=== PATIENT | male | born 1980 | race Caucasian/White ===

== ENCOUNTER 2023-01-29 15:04 | Inpatient (IN) | payer OTHER ==
[~2023-01-29 15:04] MED LIST: Iopamidol 370 76% 100 ML VIAL ONE
[2023-01-29 16:12] LABS: #Eosinphils 0.2 10x3/uL (0.0-0.5); #Monocytes 0.7 10x3/uL (0.0-1.1); %Basophils 0.5 % (0.0-2.0); %Eosinophils 5.7 % (0.0-6.0); %Lymphocytes 28.1 % (18.0-47.0); %Monocytes 16.4 % (0.0-10.0); %Neutrophils 49.1 % (40.0-75.0); Hemoglobin 13.8 g/dL (13.5-17.5); Mean Corpuscular HGB CONC 34.5 g/dL (32.0-36.0); Mean Corpuscular Hemoglobin 30.9 pg (27.0-33.0); Mean Corpuscular Volume 89.5 fl (81.2-95.1); Mean Platelet Volume 9.7 fl (7.4-10.4); Platelet Count 203 10x3/uL (150-450); RBC Distribution Width 12.3 % (11.5-14.5); Red Blood Cell (RBC) Count 4.47 10x6/uL (4.32-5.72)
[2023-01-29] MEDS ORDERED: Ondansetron PF 4 MG/2 ML Vial ONE ×4 (16:17→21:39)
[2023-01-29] MEDS ORDERED: HYDROmorphone 0.5 MG/0.5 ML SYRINGE ONE ×3 (16:23→21:39)
[2023-01-29 16:28] LABS: ALT (SGPT) 42 U/L (8-55); AST (SGOT) 27 U/L (5-34); Albumin 4.1 g/dL (3.5-5.0); Alkaline Phosphatase 68 U/L (40-110); Anion Gap 15 mmol/L (10-20); BUN (Urea Nitrogen) 16 mg/dL (8.9-20.6); Bilirubin, Total 0.8 mg/dL (0.2-1.2); Calc. Creatinine Clearance 0 mL/min (70-130); Calcium 9.7 mg/dL (7.8-10.44); Carbon Dioxide 29 mmol/L (22-29); Chloride 101 mmol/L (98-107); Estimated GFR 70; Globulin 2.7 g/dL (2.4-3.5); Glucose 79 mg/dL (70-105); Magnesium 1.9 mg/dL (1.6-2.6); Potassium 4.1 mmol/L (3.5-5.1); Protein, Total 6.8 g/dL (6.0-8.3); Sodium 141 mmol/L (136-145)
[2023-01-29 18:15] LABS: Prothrombin Time 10.4 sec (9.5-12.1)
[2023-01-29] MEDS ORDERED: Pantoprazole 40 MG VIAL ONE (19:09)
[2023-01-29] MEDS ORDERED: Pantoprazole 80 MG in Sodium Chloride 0.9% 100 ML IVPB SCH ×2 (19:15→20:45)
[2023-01-29] MEDS ORDERED: HYDROcodone/Acetaminophen 5/325 mg Tablet PO PRN (20:33)
[2023-01-29] MEDS ORDERED: Acetaminophen 325 MG TAB PO PRN ×2 (20:33→20:44)
[2023-01-29] MEDS ORDERED: Dextrose 5%-Lactated Ringers 1,000 ML IV SCH (20:45)
[2023-01-29 21:18] LABS: #Eosinphils 0.2 10x3/uL (0.0-0.5); #Monocytes 0.6 10x3/uL (0.0-1.1); #Neutrophils 1.8 10x3/uL (1.5-8.4); %Basophils 0.3 % (0.0-2.0); %Eosinophils 5.2 % (0.0-6.0); %Lymphocytes 32.5 % (18.0-47.0); %Monocytes 14.7 % (0.0-10.0); %Neutrophils 46.8 % (40.0-75.0); Hematocrit 38.8 % (38.8-50.0); Hemoglobin 13.5 g/dL (13.5-17.5); Mean Corpuscular HGB CONC 34.8 g/dL (32.0-36.0); Mean Corpuscular Hemoglobin 31.2 pg (27.0-33.0); Mean Corpuscular Volume 89.6 fl (81.2-95.1); Mean Platelet Volume 9.7 fl (7.4-10.4); Platelet Count 207 10x3/uL (150-450); RBC Distribution Width 12.3 % (11.5-14.5); Red Blood Cell (RBC) Count 4.33 10x6/uL (4.32-5.72); White Blood Cell (WBC) Count 3.8 10x3/uL (3.5-10.5)
[2023-01-29] MEDS: HYDROmorphone 0.5 MG/0.5 ML SYRINGE SLOW IVP PRN (21:45)
[2023-01-29 22:58] LABS: Cardiac Risk 3.9 (Less than 4.5)
[2023-01-30] MEDS: HYDROmorphone 2 MG TAB PO PRN ×2 (01:30→09:12)
[2023-01-30 02:41] LABS: #Eosinphils 0.2 10x3/uL (0.0-0.5); #Monocytes 0.5 10x3/uL (0.0-1.1); #Neutrophils 1.2 10x3/uL (1.5-8.4); %Basophils 0.7 % (0.0-2.0); %Eosinophils 6.9 % (0.0-6.0); %Lymphocytes 36.3 % (18.0-47.0); %Monocytes 16.3 % (0.0-10.0); %Neutrophils 39.5 % (40.0-75.0); Hematocrit 40.4 % (38.8-50.0); Hemoglobin 14.1 g/dL (13.5-17.5); Mean Corpuscular HGB CONC 34.9 g/dL (32.0-36.0); Mean Corpuscular Hemoglobin 31.4 pg (27.0-33.0); Mean Platelet Volume 9.4 fl (7.4-10.4); Platelet Count 201 10x3/uL (150-450); RBC Distribution Width 12.3 % (11.5-14.5); Red Blood Cell (RBC) Count 4.49 10x6/uL (4.32-5.72); White Blood Cell (WBC) Count 3.1 10x3/uL (3.5-10.5)
[2023-01-30] MEDS ORDERED: Ondansetron PF 4 MG/2 ML Vial ONE ×3 (03:36→19:50)
[2023-01-30 03:44] LABS: Anion Gap 16 mmol/L (10-20); BUN (Urea Nitrogen) 13 mg/dL (8.9-20.6); Calc. Creatinine Clearance 0 mL/min (70-130); Calcium 9.2 mg/dL (7.8-10.44); Carbon Dioxide 25 mmol/L (22-29); Chloride 101 mmol/L (98-107); Cholesterol 145 mg/dl (< 200 Desired); Estimated GFR 89; Glucose 91 mg/dL (70-105); HDL Cholesterol 36 mg/dL (>60 Neg Risk); LDL Cholesterol, Calculated 79 mg/dL; Lipase 21 U/L (8-78); Sodium 138 mmol/L (136-145); Triglycerides 151 mg/dL (Less than 150)
[2023-01-30] MEDS: Ondansetron PF 4 MG/2 ML Vial IVP PRN ×3 (03:50→19:46)
[2023-01-30] MEDS: HYDROmorphone 0.5 MG/0.5 ML SYRINGE SLOW IVP PRN ×3 (05:09→19:20)
[2023-01-30] MEDS ORDERED: HYDROmorphone 0.5 MG/0.5 ML SYRINGE ONE ×3 (05:10→19:28)
[2023-01-30 07:25] LABS: #Eosinphils 0.2 10x3/uL (0.0-0.5); #Monocytes 0.5 10x3/uL (0.0-1.1); #Neutrophils 1.4 10x3/uL (1.5-8.4); %Basophils 0.3 % (0.0-2.0); %Eosinophils 5.9 % (0.0-6.0); %Lymphocytes 30.8 % (18.0-47.0); %Monocytes 16.7 % (0.0-10.0); Hematocrit 37.1 % (38.8-50.0); Hemoglobin 13.1 g/dL (13.5-17.5); Mean Corpuscular HGB CONC 35.3 g/dL (32.0-36.0); Mean Corpuscular Hemoglobin 31.5 pg (27.0-33.0); Mean Corpuscular Volume 89.2 fl (81.2-95.1); Mean Platelet Volume 9.3 fl (7.4-10.4); Platelet Count 179 10x3/uL (150-450); RBC Distribution Width 12.3 % (11.5-14.5); Red Blood Cell (RBC) Count 4.16 10x6/uL (4.32-5.72); White Blood Cell (WBC) Count 3.1 10x3/uL (3.5-10.5)
[2023-01-30] MEDS: predniSONE 1 MG TAB PO SCH ×3 (09:07→21:40)
[2023-01-30] MEDS: Rivaroxaban 10 MG TAB PO SCH ×2 (09:08→21:39)
[2023-01-30] MEDS: Atorvastatin Calcium 40 MG TAB PO SCH (09:10)
[2023-01-30] MEDS: Pantoprazole 40 MG VIAL IVP SCH ×2 (09:10→21:27)
[2023-01-30] MEDS: Escitalopram Oxalate 20 mg Tablet PO SCH (09:11)
[2023-01-30] MEDS ORDERED: Pantoprazole 40 MG VIAL ONE ×2 (09:24→21:14)
[2023-01-30] MEDS ORDERED: Atorvastatin Calcium 40 MG TAB ONE (09:27)
[2023-01-30 14:57] LABS: Hematocrit 36.6 % (38.8-50.0); Hemoglobin 13.1 g/dL (13.5-17.5)
[2023-01-30] MEDS: Dextrose 5%-Lactated Ringers 1,000 ML IV SCH ×2 (19:22→21:39)
[2023-01-31] MEDS: HYDROmorphone 0.5 MG/0.5 ML SYRINGE SLOW IVP PRN ×2 (00:32→07:29)
[2023-01-31] MEDS: predniSONE 1 MG TAB PO SCH ×4 (00:32→18:30)
[2023-01-31] MEDS: Ondansetron PF 4 MG/2 ML Vial IVP PRN ×4 (00:32→23:31)
[2023-01-31 04:59] LABS: Hematocrit 39.9 % (38.8-50.0); Hemoglobin 13.6 g/dL (13.5-17.5); Mean Corpuscular HGB CONC 34.1 g/dL (32.0-36.0); Mean Corpuscular Hemoglobin 31.2 pg (27.0-33.0); Mean Corpuscular Volume 91.5 fl (81.2-95.1); Mean Platelet Volume 9.4 fl (7.4-10.4); Platelet Count 176 10x3/uL (150-450); RBC Distribution Width 11.9 % (11.5-14.5); Red Blood Cell (RBC) Count 4.36 10x6/uL (4.32-5.72)
[2023-01-31 05:17] LABS: Anion Gap 16 mmol/L (10-20); BUN (Urea Nitrogen) 11 mg/dL (8.9-20.6); Calc. Creatinine Clearance 157 mL/min (70-130); Calcium 9.3 mg/dL (7.8-10.44); Carbon Dioxide 27 mmol/L (22-29); Chloride 100 mmol/L (98-107); Estimated GFR 77; Glucose 94 mg/dL (70-105); Potassium 3.8 mmol/L (3.5-5.1); Sodium 139 mmol/L (136-145)
[2023-01-31] MEDS: HYDROmorphone 2 MG TAB PO PRN (06:27)
[2023-01-31] MEDS: Atorvastatin Calcium 40 MG TAB PO SCH (07:58)
[2023-01-31] MEDS: Escitalopram Oxalate 20 mg Tablet PO SCH (07:58)
[2023-01-31] MEDS: Pantoprazole 40 MG VIAL IVP SCH ×2 (07:59→21:07)
[2023-01-31] MEDS: Dextrose 5%-Lactated Ringers 1,000 ML IV SCH (07:59)
[2023-01-31] MEDS ORDERED: PROPOFOL 20 ML ONE (13:33)
[2023-01-31] MEDS ORDERED: fentaNYL 50 mcg/mL 1 mL Vial ONE (13:33)
[2023-01-31] MEDS ORDERED: Midazolam HCl 2 mg/2 ml Vial ONE (13:33)
[2023-01-31] MEDS ORDERED: HYDROmorphone 0.5 MG/0.5 ML SYRINGE ONE (14:02)
[2023-01-31] MEDS: Morphine 2 MG/ML VIAL SLOW IVP PRN ×3 (14:56→23:31)
[2023-01-31] MEDS: Lactated Ringer's 1,000 ML IV SCH (14:57)
[2023-02-01] MEDS: Lactated Ringer's 1,000 ML IV SCH ×2 (02:15→13:07)
[2023-02-01] MEDS: Morphine 2 MG/ML VIAL SLOW IVP PRN ×3 (03:38→13:07)
[2023-02-01] MEDS: predniSONE 1 MG TAB PO SCH ×3 (06:38→13:07)
[2023-02-01] MEDS: Escitalopram Oxalate 20 mg Tablet PO SCH (08:30)
[2023-02-01] MEDS: Rivaroxaban 10 MG TAB PO SCH (08:31)
[2023-02-01] MEDS: Atorvastatin Calcium 40 MG TAB PO SCH (08:31)
[2023-02-01] MEDS: Ondansetron PF 4 MG/2 ML Vial IVP PRN (08:32)
[2023-02-01] MEDS: Pantoprazole 40 MG VIAL IVP SCH (08:33)
[2023-02-01 09:07] LABS: Hematocrit 38.4 % (38.8-50.0); Hemoglobin 13.3 g/dL (13.5-17.5)
[2023-02-01 13:03] VITALS: BP 129/75; TEMP 98.1
== END 2023-02-01 15:20 | disposition home or self-care (01) | DRG 377 ==
LOC: CSHERS 15:04 → CSHERHOLD 20:56 → CSHTELE 01-30 21:25 → OBSVTOIN 01-31 08:29 → INTOOBSV 01-31 08:29
PROVIDERS: ADMIT Student in an Organized Health Care Education/Training Program; ATTEND Internal Medicine
PROC: 0DB68ZX Excision of Stomach, Via Natural or Artificial Opening Endoscopic, Diagnostic (ICD-10-PCS; principal; 2023-01-31)
DX: K92.0 Hematemesis (principal); I26.99 Other pulmonary embolism without acute cor pulmonale; K85.90 Acute pancreatitis without necrosis or infection, unspecified; E27.40 Unspecified adrenocortical insufficiency; N17.9 Acute kidney failure, unspecified; C74.90 Malignant neoplasm of unspecified part of unspecified adrenal gland; I10 Essential (primary) hypertension; F41.9 Anxiety disorder, unspecified; F32.A Depression, unspecified; G89.4 Chronic pain syndrome; I49.5 Sick sinus syndrome; E78.5 Hyperlipidemia, unspecified; Z92.3 Personal history of irradiation; Z79.52 Long term (current) use of systemic steroids; Z79.01 Long term (current) use of anticoagulants; Z87.11 Personal history of peptic ulcer disease; Z88.8 Allergy status to other drugs, medicaments and biological substances; Z88.2 Allergy status to sulfonamides; Z88.1 Allergy status to other antibiotic agents; Z79.899 Other long term (current) drug therapy; Z95.0 Presence of cardiac pacemaker; Z80.0 Family history of malignant neoplasm of digestive organs; K21.9 Gastro-esophageal reflux disease without esophagitis
CPT/HCPCS: 36415; 71275; 74174; 80048; 80053; 80061; 82533; 83605; 83690; 83735; 84484; 85014; 85018; 85025; 85027; 85610; 85730; 86850; 86900; 86901; 88305; 88342; 93005; 93970; 96376; C9113; G0378; J1170; J2250; J2272; J2405; J2704; J3010; J3490; J7120; J7512; Q9967

== ENCOUNTER 2023-02-19 00:09 | Inpatient (IN) | payer OTHER ==
[2023-02-19 01:58] VITALS: BMI 35.1
[2023-02-19] MEDS ORDERED: Pantoprazole 40 MG VIAL IVP SCH ×2 (02:30→09:00)
[2023-02-19] MEDS: Metoprolol Tartrate 5 MG/5 ML VIAL IVP SCH ×2 (02:48→16:04)
[2023-02-19 02:59] LABS: #Eosinphils 0.1 10x3/uL (0.0-0.5); #Monocytes 0.4 10x3/uL (0.0-1.1); #Neutrophils 1.3 10x3/uL (1.5-8.4); %Basophils 0.4 % (0.0-2.0); %Lymphocytes 33.8 % (18.0-47.0); %Monocytes 14.7 % (0.0-10.0); %Neutrophils 47.7 % (40.0-75.0); Hemoglobin 12.1 g/dL (13.5-17.5); Mean Corpuscular HGB CONC 35.6 g/dL (32.0-36.0); Mean Corpuscular Hemoglobin 31.4 pg (27.0-33.0); Mean Corpuscular Volume 88.3 fl (81.2-95.1); Mean Platelet Volume 9.1 fl (7.4-10.4); Platelet Count 183 10x3/uL (150-450); RBC Distribution Width 12.2 % (11.5-14.5); Red Blood Cell (RBC) Count 3.85 10x6/uL (4.32-5.72); White Blood Cell (WBC) Count 2.7 10x3/uL (3.5-10.5)
[2023-02-19] MEDS: Morphine 4 MG/ML VIAL SLOW IVP PRN ×5 (02:59→20:21)
[2023-02-19] MEDS: NS 0.9% w/ 20 MEQ KCL 1,000 ML/1,000 ML BAG IV SCH ×3 (03:00→16:02)
[2023-02-19 03:08] LABS: PTT 26.8 sec (22.0-33.0); Prothrombin Time 10.4 sec (9.5-12.1)
[2023-02-19 03:11] LABS: Anion Gap 14 mmol/L (10-20); BUN (Urea Nitrogen) 9 mg/dL (8.9-20.6); Calc. Creatinine Clearance 154 mL/min (70-130); Carbon Dioxide 23 mmol/L (22-29); Chloride 107 mmol/L (98-107); Estimated GFR 76; Glucose 91 mg/dL (70-105); Lipase 31 U/L (8-78); Magnesium 1.9 mg/dL (1.6-2.6); Potassium 3.4 mmol/L (3.5-5.1); Sodium 141 mmol/L (136-145)
[2023-02-19 03:18] LABS: Cardiac Risk 3.9 (Less than 4.5); Cholesterol 122 mg/dl (< 200 Desired); HDL Cholesterol 31 mg/dL (>60 Neg Risk); LDL Cholesterol, Calculated 47 mg/dL; Triglycerides 219 mg/dL (Less than 150)
[2023-02-19] MEDS: Diazepam 10 MG/2 ML SYRINGE IVP PRN (03:45)
[2023-02-19 07:36] LABS: Hematocrit 34.4 % (38.8-50.0); Hemoglobin 12.2 g/dL (13.5-17.5)
[2023-02-19] MEDS: Atenolol 25 MG TAB PO SCH (08:41)
[2023-02-19] MEDS ORDERED: Hydrocortisone Sod Succ/PF 100 mg/2 ml Vial IVP SCH (09:00)
[2023-02-19] MEDS ORDERED: Acetaminophen 325 MG TAB PO PRN (09:53)
[2023-02-19] MEDS ORDERED: Iopamidol 300 61% 100 ML VIAL FS ONE (10:05)
[2023-02-19] MEDS ORDERED: Polyethylene Glycol 3350 17 GM Packet PO PRN (10:15)
[2023-02-19] MEDS: Hydrocortisone Sod Succ/PF 100 mg/2 ml Vial IVP SCH ×3 (11:04→23:55)
[2023-02-19] MEDS: HYDROmorphone 2 MG TAB PO PRN ×2 (11:04→16:03)
[2023-02-19] MEDS: Ondansetron PF 4 MG/2 ML Vial IVP PRN ×2 (11:08→17:16)
[2023-02-19 12:07] LABS: Hematocrit 36.2 % (38.8-50.0); Hemoglobin 12.8 g/dL (13.5-17.5)
[2023-02-19] MEDS ORDERED: HYDROmorphone 0.5 MG/0.5 ML SYRINGE SLOW IVP SCH (22:15)
[2023-02-20] MEDS: Ondansetron PF 4 MG/2 ML Vial IVP PRN ×2 (00:24→11:01)
[2023-02-20] MEDS: Metoprolol Tartrate 5 MG/5 ML VIAL IVP SCH (02:09)
[2023-02-20] MEDS: Morphine 4 MG/ML VIAL SLOW IVP PRN ×2 (02:09→15:02)
[2023-02-20] MEDS: NS 0.9% w/ 20 MEQ KCL 1,000 ML/1,000 ML BAG IV SCH ×2 (02:39→15:02)
[2023-02-20] MEDS: Diazepam 10 MG/2 ML SYRINGE IVP PRN (03:13)
[2023-02-20 04:41] LABS: #Monocytes 0.3 10x3/uL (0.0-1.1); #Neutrophils 3.1 10x3/uL (1.5-8.4); %Lymphocytes 11.7 % (18.0-47.0); %Monocytes 6.9 % (0.0-10.0); %Neutrophils 81.1 % (40.0-75.0); Hematocrit 35.3 % (38.8-50.0); Hemoglobin 12.7 g/dL (13.5-17.5); Mean Corpuscular Hemoglobin 31.5 pg (27.0-33.0); Mean Corpuscular Volume 87.6 fl (81.2-95.1); Mean Platelet Volume 9.5 fl (7.4-10.4); Platelet Count 201 10x3/uL (150-450); Red Blood Cell (RBC) Count 4.03 10x6/uL (4.32-5.72); White Blood Cell (WBC) Count 3.8 10x3/uL (3.5-10.5)
[2023-02-20 04:46] LABS: Anion Gap 13 mmol/L (10-20); BUN (Urea Nitrogen) 7 mg/dL (8.9-20.6); Calc. Creatinine Clearance 194 mL/min (70-130); Calcium 8.8 mg/dL (7.8-10.44); Carbon Dioxide 23 mmol/L (22-29); Chloride 106 mmol/L (98-107); Estimated GFR 100; Glucose 106 mg/dL (70-105); Potassium 3.9 mmol/L (3.5-5.1); Sodium 138 mmol/L (136-145)
[2023-02-20] MEDS: Hydrocortisone Sod Succ/PF 100 mg/2 ml Vial IVP SCH (05:42)
[2023-02-20] MEDS: Atenolol 25 MG TAB PO SCH (08:27)
[2023-02-20] MEDS ORDERED: Lisinopril 20 MG TAB PO SCH (09:00)
[2023-02-20] MEDS ORDERED: Escitalopram Oxalate 20 mg Tablet PO SCH (09:00)
[2023-02-20] MEDS ORDERED: Polyethylene Glycol 3350 17 GM Packet PO SCH (09:00)
[2023-02-20] MEDS ORDERED: Atorvastatin Calcium 40 MG TAB PO SCH (09:00)
[2023-02-20] MEDS ORDERED: predniSONE 1 MG TAB PO SCH (13:00)
[2023-02-20] MEDS: HYDROmorphone 2 MG TAB PO PRN (13:21)
[2023-02-20 16:40] VITALS: BP 148/86; TEMP 98.3
== END 2023-02-20 18:39 | disposition home or self-care (01) | DRG 378 ==
LOC: CSHTELE 01:01 → OBSVTOIN 02-20 12:40
PROVIDERS: ADMIT Family Medicine; ATTEND Internal Medicine
DX: K29.71 Gastritis, unspecified, with bleeding (principal); C74.01 Malignant neoplasm of cortex of right adrenal gland; E27.40 Unspecified adrenocortical insufficiency; K90.9 Intestinal malabsorption, unspecified; I10 Essential (primary) hypertension; E78.1 Pure hyperglyceridemia; F32.A Depression, unspecified; F41.9 Anxiety disorder, unspecified; I49.5 Sick sinus syndrome; Z88.2 Allergy status to sulfonamides; Z88.1 Allergy status to other antibiotic agents; Z88.8 Allergy status to other drugs, medicaments and biological substances; Z79.899 Other long term (current) drug therapy; Z86.711 Personal history of pulmonary embolism; Z95.0 Presence of cardiac pacemaker; Z90.49 Acquired absence of other specified parts of digestive tract; Z98.890 Other specified postprocedural states; Z79.01 Long term (current) use of anticoagulants; Z92.3 Personal history of irradiation; Z87.11 Personal history of peptic ulcer disease; Z82.49 Family history of ischemic heart disease and other diseases of the circulatory system; Z79.52 Long term (current) use of systemic steroids
CPT/HCPCS: 36415; 71045; 74019; 74178; 76705; 78227; 80048; 80061; 83690; 83735; 85025; 85610; 85730; 93005; 93010; 96374; 96375; 96376; A9537; C9113; G0378; J1170; J1720; J2270; J2405; J3360; J3480; J7512; Q9967

== ENCOUNTER 2023-02-25 05:57 | Emergency (ER) | payer OTHER ==
[2023-02-25] MEDS ORDERED: Ondansetron PF 4 MG/2 ML Vial ONE (06:36)
[2023-02-25] MEDS ORDERED: Dicyclomine 20 MG TAB ONE (06:36)
[2023-02-25 07:09] LABS: #Eosinphils 0.1 10x3/uL (0.0-0.5); #Monocytes 0.4 10x3/uL (0.0-1.1); #Neutrophils 1.2 10x3/uL (1.5-8.4); %Basophils 0.4 % (0.0-2.0); %Eosinophils 3.8 % (0.0-6.0); %Lymphocytes 39.1 % (18.0-47.0); %Monocytes 13.2 % (0.0-10.0); %Neutrophils 43.1 % (40.0-75.0); Hematocrit 34.8 % (38.8-50.0); Hemoglobin 12.3 g/dL (13.5-17.5); Mean Corpuscular HGB CONC 35.3 g/dL (32.0-36.0); Mean Corpuscular Hemoglobin 31.4 pg (27.0-33.0); Mean Corpuscular Volume 88.8 fl (81.2-95.1); Mean Platelet Volume 9.8 fl (7.4-10.4); Platelet Count 184 10x3/uL (150-450); RBC Distribution Width 12.3 % (11.5-14.5); Red Blood Cell (RBC) Count 3.92 10x6/uL (4.32-5.72); White Blood Cell (WBC) Count 2.7 10x3/uL (3.5-10.5)
[2023-02-25 07:15] LABS: INR-International Normal Ratio 0.9; PTT 26.3 sec (22.0-33.0); Prothrombin Time 10.2 sec (9.5-12.1)
[2023-02-25 07:22] LABS: ALT (SGPT) 19 U/L (8-55); AST (SGOT) 15 U/L (5-34); Albumin 3.9 g/dL (3.5-5.0); Alkaline Phosphatase 65 U/L (40-110); Anion Gap 17 mmol/L (10-20); BUN (Urea Nitrogen) 9 mg/dL (8.9-20.6); Bilirubin, Total 0.5 mg/dL (0.2-1.2); Calc. Creatinine Clearance 0 mL/min (70-130); Calcium 8.9 mg/dL (7.8-10.44); Carbon Dioxide 21 mmol/L (22-29); Chloride 107 mmol/L (98-107); Estimated GFR 86; Globulin 2.1 g/dL (2.4-3.5); Glucose 104 mg/dL (70-105); Lipase 79 U/L (8-78); Potassium 3.5 mmol/L (3.5-5.1); Sodium 141 mmol/L (136-145)
[2023-02-25] MEDS ORDERED: fentaNYL 50 mcg/mL 1 mL Vial ONE (08:02)
== END 2023-02-25 08:11 | disposition home or self-care (01) ==
LOC: CSHERS 05:57
DX: K86.1 Other chronic pancreatitis (principal); E78.5 Hyperlipidemia, unspecified; I10 Essential (primary) hypertension; Z79.899 Other long term (current) drug therapy
CPT/HCPCS: 80053; 83690; 85025; 85610; 85730; 96374; 96375; J2405; J3010

== ENCOUNTER 2023-05-05 01:53 | Emergency (ER) | payer OTHER ==
[2023-05-05 02:29] LABS: #Eosinphils 0.1 10x3/uL (0.0-0.5); #Monocytes 0.4 10x3/uL (0.0-1.1); #Neutrophils 1.5 10x3/uL (1.5-8.4); %Basophils 0.3 % (0.0-2.0); %Eosinophils 3.1 % (0.0-6.0); %Lymphocytes 30.3 % (18.0-47.0); %Monocytes 12.5 % (0.0-10.0); %Neutrophils 53.5 % (40.0-75.0); Hemoglobin 12.7 g/dL (13.5-17.5); Mean Corpuscular HGB CONC 34.3 g/dL (32.0-36.0); Mean Corpuscular Hemoglobin 30.5 pg (27.0-33.0); Mean Corpuscular Volume 88.7 fl (81.2-95.1); Mean Platelet Volume 9.6 fl (7.4-10.4); Platelet Count 194 10x3/uL (150-450); RBC Distribution Width 12.5 % (11.5-14.5); Red Blood Cell (RBC) Count 4.17 10x6/uL (4.32-5.72); White Blood Cell (WBC) Count 2.9 10x3/uL (3.5-10.5)
[2023-05-05] MEDS ORDERED: HYDROmorphone 0.5 MG/0.5 ML SYRINGE ONE ×2 (02:36→03:58)
[2023-05-05] MEDS ORDERED: Ondansetron PF 4 MG/2 ML Vial ONE (02:36)
[2023-05-05] MEDS ORDERED: Famotidine/PF 20 mg/2ml Vial ONE (02:36)
[2023-05-05 02:43] LABS: ALT (SGPT) 135 U/L (8-55); AST (SGOT) 63 U/L (5-34); Albumin 4.3 g/dL (3.5-5.0); Alkaline Phosphatase 105 U/L (40-110); Anion Gap 16 mmol/L (10-20); BUN (Urea Nitrogen) 12 mg/dL (8.9-20.6); Bilirubin, Total 0.6 mg/dL (0.2-1.2); Calc. Creatinine Clearance 0 mL/min (70-130); Calcium 9.5 mg/dL (7.8-10.44); Carbon Dioxide 23 mmol/L (22-29); Chloride 105 mmol/L (98-107); Estimated GFR 94; Globulin 3.2 g/dL (2.4-3.5); Glucose 99 mg/dL (70-105); Lipase 30 U/L (8-78); Potassium 3.6 mmol/L (3.5-5.1); Protein, Total 7.5 g/dL (6.0-8.3); Sodium 140 mmol/L (136-145)
[2023-05-05 02:54] LABS: PTT 26.8 sec (22.0-33.0); Prothrombin Time 10.3 sec (9.5-12.1)
== END 2023-05-05 05:10 | disposition home or self-care (01) ==
LOC: CSHERS 01:53
DX: K92.0 Hematemesis (principal); G89.29 Other chronic pain; R10.10 Upper abdominal pain, unspecified; I10 Essential (primary) hypertension; Z79.01 Long term (current) use of anticoagulants; Z79.899 Other long term (current) drug therapy
CPT/HCPCS: 80053; 83690; 85025; 85610; 85730; 96374; 96375; 96376; J1170; J2405; S0028

== ENCOUNTER 2023-05-30 05:44 | Emergency (ER) | payer OTHER ==
[2023-05-30 06:42] LABS: #Eosinphils 0.2 10x3/uL (0.0-0.5); #Monocytes 0.4 10x3/uL (0.0-1.1); #Neutrophils 2.1 10x3/uL (1.5-8.4); %Basophils 0.3 % (0.0-2.0); %Lymphocytes 25.7 % (18.0-47.0); %Monocytes 11.6 % (0.0-10.0); %Neutrophils 57.1 % (40.0-75.0); Hemoglobin 12.1 g/dL (13.5-17.5); Mean Corpuscular HGB CONC 34.6 g/dL (32.0-36.0); Mean Corpuscular Hemoglobin 30.3 pg (27.0-33.0); Mean Corpuscular Volume 87.5 fl (81.2-95.1); Mean Platelet Volume 9.8 fl (7.4-10.4); Platelet Count 151 10x3/uL (150-450); RBC Distribution Width 12.6 % (11.5-14.5); White Blood Cell (WBC) Count 3.6 10x3/uL (3.5-10.5)
[2023-05-30 06:55] LABS: ALT (SGPT) 18 U/L (8-55); AST (SGOT) 17 U/L (5-34); Alkaline Phosphatase 78 U/L (40-110); Anion Gap 16 mmol/L (10-20); BUN (Urea Nitrogen) 8 mg/dL (8.9-20.6); Bilirubin, Total 0.5 mg/dL (0.2-1.2); Calc. Creatinine Clearance 0 mL/min (70-130); Calcium 9.1 mg/dL (7.8-10.44); Carbon Dioxide 20 mmol/L (22-29); Chloride 105 mmol/L (98-107); Estimated GFR 88; Globulin 2.9 g/dL (2.4-3.5); Glucose 107 mg/dL (70-105); Potassium 3.9 mmol/L (3.5-5.1); Protein, Total 6.9 g/dL (6.0-8.3); Sodium 137 mmol/L (136-145)
[2023-05-30] MEDS ORDERED: Ibuprofen 800 MG TAB ONE (06:56)
[2023-05-30] MEDS ORDERED: Mag-Al Plus 1200 MG/1200 MG/120 MG/30 ML UDCUP ONE (07:53)
[2023-05-30 08:14] LABS: Troponin I Less than 0.010 ng/mL (< 0.028)
[2023-05-30] MEDS ORDERED: Lidocaine 2% Viscous Solution 10 ML, Aluminum & Magnesium Hydroxide 30 ML SSW SCH (08:15)
[2023-05-30 08:57] LABS: Bilirubin Neg (Negative); Blood, Urine Negative (Negative); Clarity Clear (Clear); Glucose, Urine (Dipstick) Normal (Negative); Ketone, Urine Negative (Negative); Leukocyte Negative (Negative); Nitrite Negative (Negative); Protein, Urine (Dipstick) 15 mg/dl (Neg-Trace); Urobilinogen Normal mg/dL (Less than 2)
[2023-05-30 09:15] LABS: Bacteria/HPF None Seen HPF (None Seen); CAUTI Indications for Culture Pelvic or flank pain; Calcium Oxalate Crystals 1+ HPF (None Seen); RBC/HPF None Seen HPF (0-3); Squamous Epithelial 0-3 HPF (0-3); WBC/HPF None Seen HPF (0-3)
[2023-05-30 09:17] LABS: Urine Culture Reflex No No
== END 2023-05-30 10:00 | disposition home or self-care (01) ==
LOC: CSHERS 05:44
DX: R10.9 Unspecified abdominal pain (principal); R10.13 Epigastric pain; I10 Essential (primary) hypertension; Z79.899 Other long term (current) drug therapy
CPT/HCPCS: 36415; 74176; 80053; 81001; 83690; 84484; 85025; 93005

== ENCOUNTER 2023-06-27 21:21 | Emergency (ER) | payer OTHER ==
[2023-06-27 22:29] LABS: Bilirubin Neg (Negative); Blood, Urine 250 (Negative); Clarity Clear (Clear); Glucose, Urine (Dipstick) Normal (Negative); Ketone, Urine Negative (Negative); Leukocyte 25 (Negative); Nitrite Negative (Negative); Protein, Urine (Dipstick) Negative (Neg-Trace); Specific Gravity, Urine 1.025 (1.005-1.030); Urobilinogen Normal mg/dL (Less than 2)
[2023-06-27] MEDS ORDERED: HYDROcodone/Acetaminophen 5/325 mg Tablet ONE (22:51)
[2023-06-27 22:57] LABS: Bacteria/HPF None Seen HPF (None Seen); CAUTI Indications for Culture Dysuria,urgency,freq; Squamous Epithelial 0-3 HPF (0-3); WBC/HPF 0-3 HPF (0-3)
[2023-06-27 22:59] LABS: Urine Culture Reflex No No
[2023-06-27 23:39] LABS: #Eosinphils 0.1 10x3/uL (0.0-0.5); #Monocytes 0.6 10x3/uL (0.0-1.1); #Neutrophils 1.7 10x3/uL (1.5-8.4); %Basophils 0.6 % (0.0-2.0); %Eosinophils 3.3 % (0.0-6.0); %Lymphocytes 34.7 % (18.0-47.0); %Monocytes 15.2 % (0.0-10.0); %Neutrophils 46.2 % (40.0-75.0); ALT (SGPT) 23 U/L (8-55); AST (SGOT) 15 U/L (5-34); Albumin 4.1 g/dL (3.5-5.0); Alkaline Phosphatase 77 U/L (40-110); Anion Gap 13 mmol/L (10-20); BUN (Urea Nitrogen) 12 mg/dL (8.9-20.6); Bilirubin, Total 0.3 mg/dL (0.2-1.2); Calc. Creatinine Clearance 0 mL/min (70-130); Calcium 9.3 mg/dL (7.8-10.44); Carbon Dioxide 27 mmol/L (22-29); Chloride 103 mmol/L (98-107); Estimated GFR 91; Glucose 97 mg/dL (70-105); Hematocrit 36.5 % (38.8-50.0); Hemoglobin 12.6 g/dL (13.5-17.5); Lipase 53 U/L (8-78); Mean Corpuscular HGB CONC 34.5 g/dL (32.0-36.0); Mean Corpuscular Hemoglobin 30.3 pg (27.0-33.0); Mean Corpuscular Volume 87.7 fl (81.2-95.1); Mean Platelet Volume 9.5 fl (7.4-10.4); Platelet Count 222 10x3/uL (150-450); Potassium 3.9 mmol/L (3.5-5.1); Protein, Total 7.1 g/dL (6.0-8.3); RBC Distribution Width 13.1 % (11.5-14.5); Red Blood Cell (RBC) Count 4.16 10x6/uL (4.32-5.72); Sodium 139 mmol/L (136-145); White Blood Cell (WBC) Count 3.6 10x3/uL (3.5-10.5)
== END 2023-06-28 | disposition home or self-care (01) ==
LOC: CSHERS 21:21
DX: R10.9 Unspecified abdominal pain (principal); R31.9 Hematuria, unspecified; I10 Essential (primary) hypertension
CPT/HCPCS: 36415; 80053; 81001; 83690; 85025; 99283

== ENCOUNTER 2023-08-17 08:31 | Emergency (ER) | payer OTHER ==
[2023-08-17] MEDS ORDERED: Ondansetron PF 4 MG/2 ML Vial ONE ×2 (09:43→12:43)
[2023-08-17] MEDS ORDERED: Pantoprazole 40 MG VIAL ONE (09:43)
[2023-08-17] MEDS ORDERED: Morphine 4 MG/ML VIAL ONE (09:43)
[2023-08-17 09:50] LABS: #Eosinphils 0.3 10x3/uL (0.0-0.5); #Monocytes 0.5 10x3/uL (0.0-1.1); #Neutrophils 1.6 10x3/uL (1.5-8.4); %Basophils 0.3 % (0.0-2.0); %Eosinophils 8.7 % (0.0-6.0); %Lymphocytes 22.5 % (18.0-47.0); %Monocytes 15.4 % (0.0-10.0); %Neutrophils 52.4 % (40.0-75.0); ALT (SGPT) 25 U/L (8-55); AST (SGOT) 17 U/L (5-34); Alkaline Phosphatase 67 U/L (40-110); Anion Gap 17 mmol/L (10-20); BUN (Urea Nitrogen) 9 mg/dL (8.9-20.6); Bilirubin, Total 0.5 mg/dL (0.2-1.2); Calc. Creatinine Clearance 0 mL/min (70-130); Calcium 8.8 mg/dL (7.8-10.44); Carbon Dioxide 20 mmol/L (22-29); Chloride 104 mmol/L (98-107); Estimated GFR 86; Globulin 2.7 g/dL (2.4-3.5); Glucose 100 mg/dL (70-105); Lipase 37 U/L (8-78); Mean Corpuscular HGB CONC 35.5 g/dL (32.0-36.0); Mean Corpuscular Hemoglobin 30.2 pg (27.0-33.0); Mean Corpuscular Volume 85.2 fl (81.2-95.1); Mean Platelet Volume 9.3 fl (7.4-10.4); Platelet Count 178 10x3/uL (150-450); Potassium 3.7 mmol/L (3.5-5.1); Protein, Total 6.7 g/dL (6.0-8.3); RBC Distribution Width 13.2 % (11.5-14.5); Red Blood Cell (RBC) Count 3.64 10x6/uL (4.32-5.72); Sodium 137 mmol/L (136-145)
[2023-08-17 10:02] LABS: PTT 25.8 sec (22.0-33.0); Prothrombin Time 10.3 sec (9.5-12.1)
[2023-08-17] MEDS ORDERED: methylPREDNISolone Sod Succ/PF 125 MG/2 ML VIAL ONE (10:14)
[2023-08-17] MEDS ORDERED: Famotidine/PF 20 mg/2ml Vial ONE (10:15)
[2023-08-17] MEDS ORDERED: diphenhydrAMINE 50 MG/ML VIAL ONE (10:15)
[2023-08-17] MEDS ORDERED: HYDROmorphone 0.5 MG/0.5 ML SYRINGE ONE ×2 (10:59→12:43)
== END 2023-08-17 13:10 | disposition home or self-care (01) ==
LOC: CSHERS 08:31
DX: K92.2 Gastrointestinal hemorrhage, unspecified (principal); I10 Essential (primary) hypertension; Z79.899 Other long term (current) drug therapy
CPT/HCPCS: 74177; 80053; 82274; 83690; 85025; 85610; 85730; 86850; 86900; 86901; 93005; 96374; 96375; 96376; C9113; J1170; J1200; J2270; J2405; J2930; S0028

== ENCOUNTER 2023-08-28 21:53 | Observation (INO) | payer OTHER ==
[2023-08-29] MEDS ORDERED: Acetaminophen 325 MG TAB PO PRN (00:16)
[2023-08-29] MEDS ORDERED: Senokot S 8.6-50 MG TAB PO PRN (00:17)
[2023-08-29 00:33] VITALS: BMI 34.4
[2023-08-29] MEDS: Morphine 4 MG/ML VIAL SLOW IVP PRN (01:10)
[2023-08-29] MEDS: predniSONE 1 MG TAB PO SCH (01:12)
[2023-08-29] MEDS: Ondansetron PF 4 MG/2 ML Vial IVP PRN (01:12)
[2023-08-29] MEDS: Lactated Ringer's 1,000 ML IV SCH (01:13)
[2023-08-29 02:33] LABS: Bilirubin Neg (Negative); Blood, Urine Negative (Negative); Clarity Clear (Clear); Glucose, Urine (Dipstick) Normal (Negative); Ketone, Urine Negative (Negative); Leukocyte Negative (Negative); Nitrite Negative (Negative); Protein, Urine (Dipstick) 15 mg/dl (Neg-Trace); Specific Gravity, Urine 1.025 (1.005-1.030); Urobilinogen Normal mg/dL (Less than 2)
[2023-08-29 02:42] LABS: Bacteria/HPF Rare-Few HPF (None Seen); Mucous/LPF 1+ LPF (<2+); RBC/HPF 0-3 HPF (0-3); Squamous Epithelial 0-3 HPF (0-3); WBC/HPF 0-3 HPF (0-3)
[2023-08-29 05:11] LABS: #Eosinphils 0.3 10x3/uL (0.0-0.5); #Monocytes 0.5 10x3/uL (0.0-1.1); #Neutrophils 1.3 10x3/uL (1.5-8.4); %Basophils 0.4 % (0.0-2.0); %Monocytes 16.7 % (0.0-10.0); %Neutrophils 49.5 % (40.0-75.0); Hematocrit 30.9 % (38.8-50.0); Hemoglobin 10.3 g/dL (13.5-17.5); Mean Corpuscular HGB CONC 33.3 g/dL (32.0-36.0); Mean Corpuscular Hemoglobin 28.9 pg (27.0-33.0); Mean Corpuscular Volume 86.6 fl (81.2-95.1); Mean Platelet Volume 9.8 fl (7.4-10.4); Platelet Count 155 10x3/uL (150-450); RBC Distribution Width 13.7 % (11.5-14.5); Red Blood Cell (RBC) Count 3.57 10x6/uL (4.32-5.72); White Blood Cell (WBC) Count 2.7 10x3/uL (3.5-10.5)
[2023-08-29 05:17] LABS: Anion Gap 11 mmol/L (10-20); BUN (Urea Nitrogen) 9 mg/dL (8.9-20.6); Calc. Creatinine Clearance 183 mL/min (70-130); Calcium 8.4 mg/dL (7.8-10.44); Carbon Dioxide 24 mmol/L (22-29); Chloride 106 mmol/L (98-107); Estimated GFR 99; Glucose 101 mg/dL (70-105); Potassium 3.4 mmol/L (3.5-5.1); Sodium 138 mmol/L (136-145)
[2023-08-29] MEDS: Pantoprazole 40 MG VIAL IVP SCH (05:52)
[2023-08-29] MEDS: Potassium Chloride 20 MEQ in Premix 1 BAG IVPB SCH (05:52)
[2023-08-29] MEDS: Escitalopram Oxalate 10 mg Tablet PO SCH (08:58)
[2023-08-29] MEDS: Hydrocortisone/Pramoxine (Proctofoam HC) 10 GM BOX TOP SCH (08:58)
[2023-08-29] MEDS: Atenolol 25 MG TAB PO SCH (08:58)
[2023-08-29] MEDS: Zinc Sulfate 220 MG CAP PO SCH (08:59)
[2023-08-29 09:34] LABS: #Eosinphils 0.3 10x3/uL (0.0-0.5); #Monocytes 0.5 10x3/uL (0.0-1.1); #Neutrophils 1.3 10x3/uL (1.5-8.4); %Basophils 0.4 % (0.0-2.0); %Eosinophils 11.2 % (0.0-6.0); %Lymphocytes 22.8 % (18.0-47.0); %Neutrophils 47.6 % (40.0-75.0); Hematocrit 31.5 % (38.8-50.0); Hemoglobin 10.4 g/dL (13.5-17.5); Mean Corpuscular Hemoglobin 28.6 pg (27.0-33.0); Mean Corpuscular Volume 86.5 fl (81.2-95.1); Mean Platelet Volume 9.8 fl (7.4-10.4); Platelet Count 161 10x3/uL (150-450); RBC Distribution Width 13.6 % (11.5-14.5); Red Blood Cell (RBC) Count 3.64 10x6/uL (4.32-5.72); White Blood Cell (WBC) Count 2.7 10x3/uL (3.5-10.5)
[2023-08-29] MEDS: HYDROmorphone 2 MG TAB PO PRN (12:43)
[2023-08-29] MEDS: Diazepam 5 MG TAB PO SCH (20:45)
[2023-08-30 08:27] VITALS: BP 102/58; TEMP 97.9
== END 2023-08-30 11:39 | disposition home or self-care (01) ==
LOC: CSHTELE 23:48 → UNDOADMOB 23:48 → CSHTELE 08-29 00:16
PROVIDERS: ADMIT Student in an Organized Health Care Education/Training Program; ATTEND Hospitalist
DX: K92.2 Gastrointestinal hemorrhage, unspecified (principal); E87.6 Hypokalemia; K85.30 Drug induced acute pancreatitis without necrosis or infection; I10 Essential (primary) hypertension; E78.5 Hyperlipidemia, unspecified; F41.9 Anxiety disorder, unspecified; F32.A Depression, unspecified; I49.5 Sick sinus syndrome; Z95.0 Presence of cardiac pacemaker; Z88.8 Allergy status to other drugs, medicaments and biological substances; Z88.2 Allergy status to sulfonamides; Z88.5 Allergy status to narcotic agent; Z79.899 Other long term (current) drug therapy; Z86.711 Personal history of pulmonary embolism; Z85.520 Personal history of malignant carcinoid tumor of kidney; Z88.1 Allergy status to other antibiotic agents
CPT/HCPCS: 80048; 81001; 85025; 93970; 96374; 96375; 96376; C9113; G0378; J2270; J2405; J3480; J7120; J7512

== ENCOUNTER 2024-05-28 02:27 | Emergency (ER) | payer SELFPAY ==
[2024-05-28] MEDS ORDERED: Pantoprazole 40 MG VIAL ONE (02:49)
[2024-05-28] MEDS ORDERED: Famotidine/PF 20 mg/2ml Vial ONE (02:50)
[2024-05-28] MEDS ORDERED: Ondansetron PF 4 MG/2 ML Vial ONE (03:08)
[2024-05-28] MEDS ORDERED: Dicyclomine 20 MG TAB ONE (03:09)
[2024-05-28] MEDS ORDERED: Acetaminophen 500 MG TAB ONE (03:09)
[2024-05-28 03:37] LABS: #Basophils 0.03 10x3/uL (0.0-0.2); #Monocytes 0.84 10x3/uL (0.0-1.1); %Basophils 0.6 % (0.0-2.0); %Eosinophils 4.2 % (0.0-6.0); %Lymphocytes 26.7 % (18.0-47.0); %Monocytes 17.6 % (0.0-10.0); %Neutrophils 50.5 % (40.0-75.0); Hematocrit 32.1 % (38.8-50.0); Hemoglobin 10.9 g/dL (13.5-17.5); Mean Corpuscular Hemoglobin 29.9 pg (27.0-33.0); Mean Corpuscular Volume 87.9 fL (81.2-95.1); Mean Platelet Volume 9.3 fL (7.4-10.4); Platelet Count 250 10x3/uL (150-450); RBC Distribution Width 13.1 % (11.5-14.5); Red Blood Cell (RBC) Count 3.65 10x6/uL (4.32-5.72); White Blood Cell (WBC) Count 4.8 10x3/uL (3.5-10.5)
[2024-05-28 03:47] LABS: INR-International Normal Ratio 0.9; PTT 22.6 sec (22.0-33.0); Prothrombin Time 9.9 sec (9.5-12.1)
[2024-05-28 03:54] LABS: ALT (SGPT) 17 U/L (8-55); AST (SGOT) 12 U/L (5-34); Albumin 3.5 g/dL (3.5-5.0); Alkaline Phosphatase 68 U/L (40-110); Anion Gap 16 mmol/L (10-20); BUN (Urea Nitrogen) 13 mg/dL (8.9-20.6); Bilirubin, Total 0.3 mg/dL (0.2-1.2); Calc. Creatinine Clearance 0 mL/min (70-130); Calcium 9.3 mg/dL (7.8-10.44); Carbon Dioxide 24 mmol/L (22-29); Chloride 103 mmol/L (98-107); Estimated GFR 92; Globulin 3.1 g/dL (2.4-3.5); Glucose 105 mg/dL (70-105); Lipase 55 U/L (8-78); Magnesium 1.9 mg/dL (1.6-2.6); Potassium 3.1 mmol/L (3.5-5.1); Protein, Total 6.6 g/dL (6.0-8.3); Sodium 140 mmol/L (136-145)
== END 2024-05-28 03:36 | disposition home or self-care (01) ==
LOC: CSHERS 02:27
DX: R10.13 Epigastric pain (principal); K92.0 Hematemesis; R03.0 Elevated blood-pressure reading, without diagnosis of hypertension
CPT/HCPCS: 80053; 83690; 83735; 85025; 85610; 85730; 86850; 86900; 86901; 93005; 96374; 96375; J2405; J2470; J3490